=== PATIENT | female | born 1990 | race Hispanic/Latino ===

== ENCOUNTER 2019-02-03 20:35 | Inpatient (IN) | payer SELFPAY ==
[2019-02-03] MEDS: Lactated Ringers 1,000 ML 50 ML IV (21:20)
[2019-02-03 21:22] VITALS: BMI 26.2
--- NOTE | 2019-02-03 21:58 | PCM.HP.OB ---
History Date of Admission: 02/03/19 Final HERIBERTO: 02/06/19 Final HERIBERTO Source: LMP Gestational age: 39 Weeks and 4 Days History of this : This is a 29 year-old, G [id number] @ 39.4 wks, in active labor Allergies No Known Allergies Allergy (Verified 02/03/19 21:45) Home Medications: Home Medications Pnv No.95/Ferrous Fum/Folic AC [ Formula] 1 each PO 02/03/19 Smoking Status: Never smoker Alcohol: None Number of Fetus(es): 1 Heart Tracin mod gavin, + accels no decels TOCO Analysis: irregular History Past Pregnancies: Past Pregnancies Delivery Date Name GA/Weeks Outcome Route Weight Gender Labor Length Anesthesia Delivery Location Provider FOB Labs: O+, HIV neg, HEP B neg, GBS neg, rub imm, syphilis neg Expected Infant Delivery Method: Spontaneous Vaginal Review of Systems Constitutional: Denies: Anorexia Cardiovascular: Denies: Chest Pain Gastrointestinal: Reports: Abdominal Pain - from contractions Physical Exam General: Alert, Oriented x3 Abdomen: Soft, Non Tender, Gravid Neurological: Cranial nerves II-XII grossly intact TRAVEL MED SURG RN: Normal external genitalia Estimated gestational size: Appropriate for gestational size Presentation: Cephalic Cervix Dilation (cm): 9 Station: 0 Effacement (%): 90 Assessment/Plan This is a 29 year-old, @ 39.4 wks in active labor 1) admit to L&D 2) Monitor FHR/toco 3) AROM- clear 4) Anticipate
--- NOTE | 2019-02-03 22:01 | HP.PCM_ITS ---
History Date of Admission: 02/03/19 Final HERIBERTO: 02/06/19 Final HERIBERTO Source: LMP Gestational age: 39 Weeks and 4 Days History of this : This is a 29 year-old, G [id number] @ 39.4 wks, in active labor Allergies No Known Allergies Allergy (Verified 02/03/19 21:45) Home Medications: Home Medications Pnv No.95/Ferrous Fum/Folic AC [ Formula] 1 each PO 02/03/19 Smoking Status: Never smoker Alcohol: None Number of Fetus(es): 1 Heart Tracin mod gavin, + accels no decels TOCO Analysis: irregular History Past Pregnancies: Past Pregnancies Delivery Date Name GA/Weeks Outcome Route Weight Gender Labor Length Anesthesia Delivery Location Provider FOB Labs: O+, HIV neg, HEP B neg, GBS neg, rub imm, syphilis neg Expected Infant Delivery Method: Spontaneous Vaginal Review of Systems Constitutional: Denies: Anorexia Cardiovascular: Denies: Chest Pain Gastrointestinal: Reports: Abdominal Pain - from contractions Physical Exam General: Alert, Oriented x3 Abdomen: Soft, Non Tender, Gravid Neurological: Cranial nerves II-XII grossly intact PROCESS CONTROLS TECHNICIAN: Normal external genitalia Estimated gestational size: Appropriate for gestational size Presentation: Cephalic Cervix Dilation (cm): 9 Station: 0 Effacement (%): 90 Assessment/Plan This is a 29 year-old, @ 39.4 wks in active labor 1) admit to L&D 2) Monitor FHR/toco 3) AROM- clear 4) Anticipate
[2019-02-03 22:09] LABS: Absolute Lymphocyte Count 1.67 X10^3/ul (0.83-4.51); Absolute Neutrophil Count 3.9 X10^3/uL (2.0-7.7); Basophil# 0.01 X10^3/uL; Basophil% 0.2 % (0-1); Eosinophil# 0.08 X10^3/uL; Eosinophils% 1.2 % (0-5); Hemoglobin 11.2 g/dl (12.0-15.0); Lymphocyte # 1.67 X10^3/ul (4.0); Mean Corp Hgb Conc 32.9 g/gl (32-36); Mean Corpuscular Hgb 28.9 pg (27.0-32.0); Mean Corpuscular Volume 87.6 fL (81-99); Mean Platelet Vol. 10.2 fl (6.2-12.0); Monocyte# 0.78 X10^3/uL; Monocyte% 12.1 % (0-10); Neutrophil # 3.86 X10^3/uL (2.7-7.7); Neutrophil % 60.2 % (47-70); Platelet Count 293 K/mm3 (150-450); Red Blood Count 3.88 M/mm3 (4.2-5.4); White Blood Count 6.4 K/mm3 (4.4-11.0)
[2019-02-03 22:12] LABS: POSITIVE COUNT NO; POSITIVE DIFFERENTIAL NO; POSITIVE MORPHOLOGY NO
[2019-02-03] MEDS: Oxytocin 30 units/NS 500 ml 30 UNITS/500 ML IV.SOLN 334 UNITS IV (22:25)
--- NOTE | 2019-02-03 22:32 | PCM.OPRPT ---
Vaginal Delivery Maternal Presentation: Active Labor Amniotic Membrane Rupture Type: Artificial Amniotic Fluid Description: Clear - meconium noted at delivery- clear at AROM Final HERIBERTO: 02/06/19 Final HERIBERTO Source: LMP Gestational age: 39 Weeks and 4 Days Date of Procedure: 02/03/19 Pre-Operative Diagnosis: term gestation, spontaneous labor Post-Operative Diagnosis: same, live male Surgery/ Procedure Performed: Spontaneous Vaginal Delivery Type of Anesthesia: None Description of Procedure: of live male born without complications. good maternal pushing effort- gentle downward traction to allow delivery of anterior shoulder followed by rest of infant body. Delayed cord clamping performed. Placenta delivered intact without complication. Presentation: Vertex Placental Delivery Description: Spontaneous Placenta Disposition: [facility] Cord Vessel Description: 3 Vessels Cord Entanglement: None Estimated Blood Loss: 250 A gender: Male (1 minute): 9 (5 minute): 9 Episiotomy Description: None Laceration: None Medications given after delivery: IV Pitocin Complications: None
[2019-02-03] MEDS: Oxytocin 30 units/NS 500 ml 30 UNITS/500 ML IV.SOLN 167 UNITS IV (22:55)
--- NOTE | 2019-02-03 23:22 | NURSING ---
2125 Obtained portion of admission questions and assessment via Ipad supply aide
--- NOTE | 2019-02-03 23:23 | NURSING ---
2245 Completed admission using Ipad interpreter translator
[2019-02-03] MEDS: 0.9% Saline Lock 10 ML Syringe IV (23:49)
[2019-02-04 04:02] VITALS: BP 90/54; PULSE 70; RESP 15; TEMP 36.5
[2019-02-04] MEDS: Ibuprofen 600 MG Tablet PO ×2 (06:23→20:41)
[2019-02-04] MEDS: Etonogestrel 68 MG IMPLANT SQ (08:55)
--- NOTE | 2019-02-04 09:08 | PCM.PN.OB ---
Subjective: pt seen at bedside, doing well. pt reports good pain control. lochia mild. voiding w/o difficulty. pt concerned with milk production. - Physical Exam General: Alert, Oriented x3 Abdomen: Soft, Non Tender, - - fundus firm Extremities: No Calf Tenderness Vital Signs Temp Pulse Resp BP 97.7 F L 70 15 90/54 L 02/04/19 04:02 02/04/19 04:02 02/04/19 04:02 02/04/19 04:02 Weight: 69.4 kg Body Mass Index (BMI) 26.2 Intake and Output for Last 24 Hours 02/02/19 02/03/19 02/04/19 23:59 23:59 23:59 Output Total 700 / 700 Balance -700 / -700 Laboratory Tests Past 24 Hrs 02/03/19 02/03/19 21:20 21:20 WBC 6.4 RBC 3.88 L Hgb 11.2 L Hct 34.0 L MCV 87.6 MCH 28.9 MCHC 32.9 RDW 14.0 RDW Differential 45.0 H Plt Count 293 MPV 10.2 Immature Gran % (Auto) 0.300 Neut % (Auto) 60.2 Lymph % (Auto) 26.0 [place] % (Auto) 12.1 H Eos % (Auto) 1.2 Baso % (Auto) 0.2 Absolute Neuts (auto) 3.9 Absolute Lymphs (auto) 1.67 Total Counted Not Reportable Blood Type O POSITIVE Antibody Screen NEGATIVE Medical Necessity - Tobacco Use Smoking Status: Never smoker Assessment/Plan PPD#1, doing well routine care reassurance of milk production- continue to let baby latch- is supplementing now pain mgmt dc home tomorrow conference interpreter line used. NEXPLANON placement
--- NOTE | 2019-02-04 09:12 | PN_ITS ---
Progress Note NEXPLANON placement Consent obtained with county home demonstrator Left arm prepped with betadine, 3cc 1% lidocaine injected. Nexplanon placed, pt was able to feel implant. steri strips and dressing applied. pt tolerated procedure well. Nexplanon card filled out and given to patient. no complications
[2019-02-04 09:49] VITALS: BP 113/52; PULSE 101; RESP 16; TEMP 36.8
[2019-02-04 12:00] VITALS: BP 101/53; PULSE 70; RESP 16; TEMP 36.6
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
[2019-02-04 16:25] VITALS: BP 108/55; PULSE 77; RESP 16; TEMP 36.7
[2019-02-04 20:23] VITALS: BP 104/52; PULSE 76; RESP 16; TEMP 36.2; O2SAT 98
[2019-02-05 02:00] VITALS: BP 96/54; PULSE 73; RESP 16; TEMP 36.5; O2SAT 97
--- NOTE | 2019-02-05 08:24 | PCM.PN.OB ---
Subjective: Pt doing well. Pain controlled. Nalini reg diet w/o N/V. Ambulating and voiding without difficulty. Lochia normal. No lightheadedness, dizziness, CP, SOB, leg pain. She feels ready to go home - Physical Exam General: Alert, No apparent distress HEENT: Atraumatic Lungs: - - No increased resp effort Abdomen: Soft, Non Tender, Non-Distended, - - FF Extremities: No edema, No Calf Tenderness Skin: No rashes Neurological: Neuro grossly intact Psych/Mental Status: Normal Affect, Appropriate Vital Signs Temp Pulse Resp BP Pulse Ox 97.7 F L 73 16 96/54 L 97 02/05/19 02:00 02/05/19 02:00 02/05/19 02:00 02/05/19 02:00 02/05/19 02:00 Oxygen Delivery Method Room Air Weight: 153 lb Body Mass Index (BMI) 26.2 Intake and Output for Last 24 Hours 02/03/19 02/04/19 02/05/19 23:59 23:59 23:59 Output Total 700 / 700 Balance -700 / -700 Medical Necessity - Tobacco Use Smoking Status: Never smoker Assessment/Plan PPD#2 - Laboratory Equipment Installer used - Pt doing well and feels ready to go home - Nexplanon in place for control - D/c home today
--- NOTE | 2019-02-05 08:27 | DCINST_ITS ---
Discharge Diet: No Restrictions Discharge Activity: May Drive, May Shower, May Take a Tub Bath May resume sexual activity in: 6 weeks Weight Bearing Status: Full weight bearing Lifting Restrictions: None Call your doctor if you observe: Fever of 101 or Higher, Inability to urinate, Inability to have a bowel movement, Using more than one pad per hour, Shortness of breath, Dizziness, Fainting spells, Chest pain, Increased palpitations (irregular heartbeat), Calf discomfort, Uncontrolled pain Instructions: After a Vaginal Additional Instructions: If you experience any of the following, contact your healthcare provider. * Bleeding that soaks a pad every hour for 2 hours * Fever 100.4 or higher * Unrelieved incision or abdominal pain * Swelling, redness, discharge or bleeding from your incision or episiotomy site * Your incision begins to separate * Problems urinating (including inability to urinate or burning while urinating). * Visual changes * Severe headache * Flu-like symptoms * Pain or redness in one of both of your breasts * Pain, warmth, tenderness or swelling in your legs, especially the calf area * Frequent nausea and vomiting * Symptoms of depression or anxiety If you experience any of the following, call 911 or go to the nearest Emergency Room. * Chest pain * Problems breathing * Seizure activity * Partial or complete paralysis of a body part, slurred speech, weakness or drooping of the face, or a sudden inability to walk or hold your balance Allergies/Adverse Reactions: Allergies No Known Allergies Allergy (Verified 02/03/19 21:45) Medications to take at Discharge Pnv No.95/Ferrous Fum/Folic AC [ Formula] 1 each PO 02/03/19 When: 6 weeks for visit. Call if you desire to be seen in 1-2 weeks as well Primary Care Physician: Care Physician,No Primary [Primary Care Provider] - Test Results: Test results from this visit will be discussed in further detail at your follow- up appointment, if applicable. Proposed Discharge Date: 02/05/19
[2019-02-05 08:45] VITALS: BP 103/64; PULSE 74; RESP 18; TEMP 36.6; O2SAT 97
[2019-02-05] MEDS: Ibuprofen 600 MG Tablet PO (09:14)
--- NOTE | 2019-02-05 09:36 | NURSING ---
RN and campaign consultant at bedside from 0830 to around 0920 to educate patient and to assist with . Translation service used. Chief Design Engineer Jose J, number [id number]. See discharge documentation for topics discussed. Patient given opportunity to ask questions and questions were answered. Patient expresses understanding with teaching.
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
--- NOTE | 2019-02-05 10:56 | NURSING ---
Used recordist chief [id number] Nicolas to reassess pain, make follow up appointment and to verify identity prior to discharge.
--- NOTE | 2019-02-08 11:17 | CASEMGMT ---
Social Work Labor and Delivery Unit As per verbal stated permission from mother of baby during hospital stay, a Help Me Grow referral submitted today 02-08-2019 via the [facility]'s secure web based referral system. -NICK Overton, CLINICAL APPLICATIONS SPECIALIST
== END 2019-02-05 12:25 | disposition home or self-care (01) | DRG 807 ==
PROVIDERS: Admitting Provider Obstetrics & Gynecology; Referring Provider Obstetrics & Gynecology; Visit Provider Obstetrics & Gynecology
DX: O77.0 Labor and delivery complicated by meconium in amniotic fluid (principal); Z37.0 Single live birth; Z3A.39 39 weeks gestation of pregnancy
CPT/HCPCS: 59050; 85025; 86850; 86900; 99218; J7120; A4216; G0378